=== PATIENT | male | born 1960 | race Caucasian/White ===

== ENCOUNTER → 2020-06-30 | Outpatient (CLI) | payer OTHER ==
[~2020-06-30] VITALS: Ht 172.7 cm; Wt 74.8 kg
[~2020-06-30] MED LIST: LOSA50TA63 PO; ROSU20TA32 PO
== END | disposition home or self-care (01) ==
LOC: PREOP 06:11
PROVIDERS: ATTEND Surgery
DX: Z01.818 Encounter for other preprocedural examination (principal)

== ENCOUNTER 2020-07-07 12:10 | Day surgery (SDC) | payer OTHER ==
[~2020-07-07] VITALS: Ht 172.7 cm; Wt 74.8 kg
[2020-07-07] VITALS (8 sets, daily range): BP systolic 142–173; BP diastolic 68–102
[2020-07-07] MEDS ORDERED: LACTATED RINGERS 1,000 ML IV ONE (12:15)
[2020-07-07] MEDS ORDERED: LACTATED RINGERS 1,000 ML IV STA (12:22)
[2020-07-07] MEDS ORDERED: PROPOFOL INJECTION 50 ML IV ONE ×2 (13:48→14:14)
[2020-07-07] MEDS ORDERED: MIDAZOLAM 2 MG/2 ML (VERSED) VIAL ONE (13:49)
--- NOTE | 2020-07-07 13:59 | Progress Note-Pre Operative ---
Pre-Operative Progress Note H&P Reviewed The H&P was reviewed, patient examined and no changes noted. Date Seen by Provider: July 07, 2020 Time Seen by Provider: 13:59 Date H&P Reviewed: July 07, 2020 Time H&P Reviewed: 13:59 Pre-Operative Diagnosis: screening colonoscopy KEHINDE CADE DO July 07, 2020 13:59
--- NOTE | 2020-07-07 14:37 | Progress Note-Post Operative ---
Post-Operative Progess Note Surgeon (s)/Police Liaison (s) Surgeon KEHINDE CADE DO Police Liaison: na Pre-Operative Diagnosis screening colonoscopy Post-Operative Diagnosis colon polyps Procedure & Operative Findings Date of Procedure 07/07/20 Procedure Performed/Findings colonoscopy c hot bx polypectomy x 4 Anesthesia Type per rags laborer Estimated Blood Loss Estimated blood loss (mL): none Specimens/Packing Specimens Removed colon polyps KEHINDE CADE DO July 07, 2020 14:37
--- NOTE | 2020-07-07 14:38 | Discharge Inst-Simple/Standard ---
Discharge Inst-Standard Patient Instructions/Follow Up Plan of Care/Instructions/FU: 2 weeks maurilio Activity as Tolerated: Yes Discharge Diet: Regular Diet KEHINDE CADE DO July 07, 2020 14:38
--- NOTE | 2020-07-07 14:54 | Anesthesia-General Post-Op ---
MAC Patient Condition Mental Status/LOC: Same as Preop Cardiovascular: Satisfactory Nausea/Vomiting: Absent Respiratory: Satisfactory Pain: Controlled Complications: Absent Post Op Complications Complications None Follow Up Care/Instructions Patient Instructions None needed. Anesthesiology Discharge Order Discharge Order Patient is doing well, no complaints, stable vital signs, no apparent adverse anesthesia problems. No complications reported per nursing. GISEL BINGHAM CRNA July 07, 2020 14:54
--- NOTE | 2020-07-07 19:20 | OPERATIVE REPORT ---
DATE OF SERVICE: 07/07/2020 PREOPERATIVE DIAGNOSIS: Screening colonoscopy. POSTOPERATIVE DIAGNOSIS: Colon polyps. PROCEDURES PERFORMED: Colonoscopy with hot biopsy polypectomy x4. SURGEON: Kehinde Damon DO ANESTHESIA: Per FINANCE LEAD. ESTIMATED BLOOD LOSS: None. COMPLICATIONS: None. INDICATIONS FOR PROCEDURE: The patient is a 60-year-old male needing screening colonoscopy. He understands the risks and benefits of the procedure and wished to proceed with the procedure. Consent was signed in the chart. DESCRIPTION OF PROCEDURE: The patient was taken to the endoscopy suite and placed in the left lateral recumbent position. Timeout was performed. Digital rectal exam was performed. There were no palpable polyps, masses or ulcerations. Scope was inserted in the rectum, advanced all the way to cecum with minimal difficulty. Prep was adequate. Scope was then slowly retracted back. There were no polyps, masses or ulcerations in the cecum, ascending, transverse colon. In the descending colon, there were two polyps that were present, which hot biopsy polypectomy was performed. Scope was then continuously retracted in the sigmoid colon. There were two other polyps, which hot biopsy polypectomy was performed. Scope was then slowly retracted back into the rectum, where it was also retroflexed noting no other pathology. Scope was returned to its normal position, slowly withdrawn until completely removed. The patient tolerated procedure well without any complications and taken to the recovery room in stable condition. RECOMMENDATIONS: The patient will need repeat colonoscopy in five years. Any issues before that be seen at that time. Job ID: [id number] DocumentID: [id number] Dictated Date: 07/07/2020 14:40:02 Data Solutions Architect Date: 07/07/2020 19:19:08 Dictated By: KEHINDE DAMON DO
== END 2020-07-07 15:35 | disposition home or self-care (01) ==
LOC: ENDO 12:10
PROVIDERS: ATTEND Surgery
DX: Z12.11 Encounter for screening for malignant neoplasm of colon (principal); D12.4 Benign neoplasm of descending colon; D12.5 Benign neoplasm of sigmoid colon; I10 Essential (primary) hypertension; I25.10 Atherosclerotic heart disease of native coronary artery without angina pectoris; F17.210 Nicotine dependence, cigarettes, uncomplicated; Z79.899 Other long term (current) drug therapy